=== PATIENT | male | born 1985 | race Two or more races ===

== ENCOUNTER 2025-02-05 21:40 | Inpatient (IN) | payer MEDICAID ==
[~2025-02-05] VITALS: Ht 182.9 cm; Wt 99.8 kg
[2025-02-05] MEDS ORDERED: ATOR40TA PO (22:05)
[2025-02-05 22:15] LABS: BASOPHILS # (AUTO) 0.1 K/UL (0.0-0.2); BASOPHILS % (AUTO) 0.3 % (0.0-2.0); EOSINOPHILS % (AUTO) 0.1 % (0.0-7.0); HEMOGLOBIN 15.8 g/dL (12.5-16.3); MEAN CORPUSCULAR HGB CONC 34 g/dL (32.5-36.3); MEAN CORPUSCULAR VOLUME 84.5 fL (73.0-96.2); MONOCYTES # (AUTO) 0.9 K/uL (0.1-1.30); MONOCYTES % (AUTO) 5.2 % (0.0-11.0); NEUTROPHILS # (AUTO) 14.9 K/uL (1.8-8.9); NEUTROPHILS % (AUTO) 83.4 % (38.5-71.5); PLATELET COUNT (AUTO) 290 K/uL (152-348); RED BLOOD CELL COUNT(AUTO) 5.44 MIL/uL (4.06-5.63); RED CELL DISTRIBUTION WIDTH 13.7 % (12.1-16.2); WHITE BLOOD COUNT (AUTO) 17.9 K/uL (3.6-10.2)
[2025-02-05 22:20] LABS: DIFFERENTIAL COMMENT 1
[2025-02-05 22:23] LABS: CALCIUM 9.9 mg/dL (8.5-10.1); CREATININE 1.2 mg/dL (0.6-1.3); POTASSIUM 3.4 mmol/L (3.5-5.1)
[2025-02-05] MEDS ORDERED: SWABABLE VALVE TRANSFER SET EA MC ONE (22:25)
[2025-02-05] MEDS ORDERED: IOHEXOL 300MG/ML 100 ML INFUS..BTL ONE (22:25)
[2025-02-05] MEDS ORDERED: IV NORMAL SALINE 250 ML IV ONE (22:25)
[2025-02-05] MEDS ORDERED: HYDROMORPHONE 1 MG/1 ML DISP.SYRIN ONE (22:28)
[2025-02-05] MEDS ORDERED: ONDANSETRON 4 MG/2 ML VIAL ONE (22:28)
[2025-02-05 22:29] LABS: ALBUMIN 4.3 g/dL (3.4-5.0); BILIRUBIN,DIRECT 0.3 mg/dL (0.0-0.2); BILIRUBIN,TOTAL 1.7 mg/dL (0.2-1.0); TOTAL PROTEIN, SERUM 8.3 g/dL (6.4-8.2)
[2025-02-05] MEDS: IV NORMAL SALINE 1000 ML BAG IV ONE (22:32)
[2025-02-05] MEDS: ONDANSETRON 4 MG/2 ML VIAL IV ONE (22:32)
[2025-02-05] MEDS: HYDROMORPHONE 1 MG/1 ML DISP.SYRIN IV ONE (22:32)
[2025-02-05] MEDS ORDERED: PIPERACILLIN/TAZOBACTAM/D5W 50 ML IV ONE (22:52)
[2025-02-05] MEDS: PIPERACILLIN SODIUM/TAZOBACTAM 3.375 G in IV DEXTROSE 5% 50 ML IV ONE (22:56)
[2025-02-06] MEDS ORDERED: ACETAMINOPHEN 325 MG TABLET PO PRN (01:30)
[2025-02-06] MEDS: IV D5 1/2 NS 1000 ML 1,000 ML IV PRN (01:47)
[2025-02-06] MEDS: POTASSIUM CHLORIDE 50 ML IV SCH (02:01)
[2025-02-06] MEDS: MORPHINE SULFATE 4 MG/1 ML DISP.SYRIN IV PRN ×2 (03:21→20:22)
[2025-02-06] MEDS: ONDANSETRON 4 MG/2 ML VIAL IV PRN (03:27)
[2025-02-06] MEDS: MORPHINE SULFATE 2 MG/1 ML DISP.SYRIN IM PRN (05:57)
[2025-02-06] MEDS ORDERED: PIPERACILLIN SODIUM/TAZOBACTAM 3.375 G in IV DEXTROSE 5% 50 ML IV SCH (06:00)
[2025-02-06 07:23] LABS: *BILIRUBIN,URIN NEGATIVE (NEGATIVE); *BLOOD, URINE NEGATIVE (NEGATIVE); *CLARITY,URINE CLEAR (CLEAR); *COLOR,URINE YELLOW (YELLOW); *KETONES,URINE NEGATIVE (NEGATIVE); *PROTEIN,URINE NEGATIVE (NEGATIVE); *UROBILINOGEN,URINE 0.2 E.U./dl (NORMAL); LEUKOCYTE ESTERASE ,URINE NEGATIVE (NEGATIVE); NITRITE, URINE NEGATIVE (NEGATIVE); PH,URINE 6.5 (5.0-8.0); UGLUCOSE NEGATIVE (NEGATIVE)
[2025-02-06] MEDS: PIPERACILLIN SODIUM/TAZOBACTAM 3.375 G in IV DEXTROSE 5% 100 ML IV SCH (08:00)
[2025-02-06] MEDS: PANTOPRAZOLE SODIUM 40 MG VIAL IV SCH (10:01)
[2025-02-06] MEDS ORDERED: DIATR MEGLU/DIATRIZOATE SODIUM 120 ML BOTTLE ONE (10:12)
[2025-02-06 11:43] VITALS: BP 140/115; TEMP 97.8; O2SAT 96
[2025-02-06 15:35] VITALS: BP 114/67; TEMP 99.7; O2SAT 97
[2025-02-06] MEDS ORDERED: ERGO500040 PO (16:41)
[2025-02-06 19:45] VITALS: BP 116/58; TEMP 99.1; O2SAT 95
[2025-02-06 19:50] VITALS: BP 116/58; TEMP 99.1; O2SAT 95
[2025-02-06 20:18] LABS: LACTIC ACID 2.5 mmol/L (0.4-2.0)
[2025-02-06] MEDS: POTASSIUM CHLORIDE 20 MEQ in IV LACTATED RINGERS SOLUTION 1,000 ML IV SCH (21:15)
[2025-02-06] MEDS: IV NS 1000 ML 1,000 ML IV ONE (22:47)
[2025-02-06 22:50] LABS: BASOPHILS % (AUTO) 0.3 % (0.0-2.0); DIFFERENTIAL COMMENT 1; EOSINOPHILS % (AUTO) 0.1 % (0.0-7.0); HEMATOCRIT 46.4 % (36.7-47.1); HEMOGLOBIN 15.8 g/dL (12.5-16.3); LYMPHOCYTES % (AUTO) 18.5 % (20.5-51.5); MEAN CORPUSCULAR HEMOGLOBIN 28.9 uug (23.8-33.4); MEAN CORPUSCULAR HGB CONC 34 g/dL (32.5-36.3); MEAN CORPUSCULAR VOLUME 84.5 fL (73.0-96.2); MONOCYTES # (AUTO) 0.9 K/uL (0.1-1.30); MONOCYTES % (AUTO) 16.2 % (0.0-11.0); NEUTROPHILS # (AUTO) 3.6 K/uL (1.8-8.9); NEUTROPHILS % (AUTO) 64.9 % (38.5-71.5); PLATELET COUNT (AUTO) 262 K/uL (152-348); RED BLOOD CELL COUNT(AUTO) 5.48 MIL/uL (4.06-5.63); RED CELL DISTRIBUTION WIDTH 13.8 % (12.1-16.2); WHITE BLOOD COUNT (AUTO) 5.6 K/uL (3.6-10.2)
[2025-02-06 22:51] LABS: NEUTROPHILS % (MANUAL) 0 % (42-75)
[2025-02-06 22:55] LABS: CALCIUM 9.5 mg/dL (8.5-10.1); CREATININE 1.1 mg/dL (0.6-1.3); POTASSIUM 3.2 mmol/L (3.5-5.1)
[2025-02-06 22:58] LABS: MAGNESIUM 2.1 mg/dL (1.8-2.4); PHOSPHOROUS 3.9 mg/dL (2.5-4.9)
[2025-02-06] MEDS: IV LACTATED RINGERS SOLUTION 1,000 ML IV ONE (23:54)
[2025-02-07 05:59] VITALS: BP 113/73; TEMP 99.1; O2SAT 95
[2025-02-07 07:04] LABS: CALCIUM 9.1 mg/dL (8.5-10.1); CREATININE 1.1 mg/dL (0.6-1.3); PHOSPHOROUS 2.5 mg/dL (2.5-4.9)
[2025-02-07 07:21] LABS: BASOPHILS % (AUTO) 0.2 % (0.0-2.0); EOSINOPHILS % (AUTO) 0.8 % (0.0-7.0); HEMATOCRIT 41.6 % (36.7-47.1); HEMOGLOBIN 14.6 g/dL (12.5-16.3); LYMPHOCYTES % (AUTO) 19.2 % (20.5-51.5); MEAN CORPUSCULAR HEMOGLOBIN 29.5 uug (23.8-33.4); MEAN CORPUSCULAR HGB CONC 35 g/dL (32.5-36.3); MEAN CORPUSCULAR VOLUME 84.1 fL (73.0-96.2); MONOCYTES # (AUTO) 0.9 K/uL (0.1-1.30); MONOCYTES % (AUTO) 16.6 % (0.0-11.0); NEUTROPHILS # (AUTO) 3.4 K/uL (1.8-8.9); NEUTROPHILS % (AUTO) 63.2 % (38.5-71.5); PLATELET COUNT (AUTO) 220 K/uL (152-348); RED BLOOD CELL COUNT(AUTO) 4.94 MIL/uL (4.06-5.63); RED CELL DISTRIBUTION WIDTH 13.8 % (12.1-16.2); WHITE BLOOD COUNT (AUTO) 5.5 K/uL (3.6-10.2)
[2025-02-07 10:18] VITALS: BP 106/66; TEMP 98.6; O2SAT 95
[2025-02-07] MEDS ORDERED: POTASSIUM CHLORIDE 50 ML IV SCH (11:00)
[2025-02-07 12:18] LABS: NEUTROPHILS % (MANUAL) 63 % (42-75)
[2025-02-07 12:19] LABS: EOSINOPHILS % (MANUAL) 1 % (0-8); LYMPHOCYTES % (MANUAL) 19 % (20-40); MONOCYTES % (MANUAL) 17 % (2-10); PLATELET ESTIMATE ADEQUATE
[2025-02-07] MEDS ORDERED: DIATR MEGLU/DIATRIZOATE SODIUM 30 ML BOTTLE ONE (12:32)
[2025-02-07 14:10] VITALS: BP 109/61; TEMP 98.5; O2SAT 95
[2025-02-07] MEDS ORDERED: SWABABLE VALVE TRANSFER SET EA MC ONE (16:30)
[2025-02-07] MEDS ORDERED: IV NORMAL SALINE 250 ML IV ONE (16:30)
[2025-02-07] MEDS ORDERED: IOHEXOL 300MG/ML 100 ML INFUS..BTL ONE (16:30)
[2025-02-07 19:00] VITALS: BP 110/68; TEMP 98.5; O2SAT 97
[2025-02-07] MEDS: POTASSIUM CHLORIDE 20 MEQ in IV LACTATED RINGERS SOLUTION 1,000 ML IV PRN (21:22)
[2025-02-08 06:29] VITALS: BP 107/65; TEMP 98.4; O2SAT 97
[2025-02-08] MEDS ORDERED: MORPHINE SULFATE 4 MG/1 ML DISP.SYRIN IV PRN (07:00)
[2025-02-08] MEDS ORDERED: MORPHINE SULFATE 2 MG/1 ML DISP.SYRIN IV PRN (10:00)
[2025-02-08 11:20] LABS: CREATININE 0.8 mg/dL (0.6-1.3); POTASSIUM 3.6 mmol/L (3.5-5.1)
[2025-02-08 11:43] VITALS: BP 114/71; TEMP 97.8; O2SAT 98
[2025-02-08 16:02] VITALS: BP 123/75; TEMP 98.3; O2SAT 98
[2025-02-09 07:00] LABS: BASOPHILS # (AUTO) 0.1 K/UL (0.0-0.2); BASOPHILS % (AUTO) 0.8 % (0.0-2.0); EOSINOPHILS # (AUTO) 0.4 K/uL (0.0-0.7); EOSINOPHILS % (AUTO) 4.8 % (0.0-7.0); HEMATOCRIT 37.1 % (36.7-47.1); HEMOGLOBIN 12.9 g/dL (12.5-16.3); LYMPHOCYTES # (AUTO) 2.4 K/uL (0.8-4.8); LYMPHOCYTES % (AUTO) 28.7 % (20.5-51.5); MEAN CORPUSCULAR HEMOGLOBIN 29.4 uug (23.8-33.4); MEAN CORPUSCULAR HGB CONC 35 g/dL (32.5-36.3); MEAN CORPUSCULAR VOLUME 84.8 fL (73.0-96.2); MONOCYTES # (AUTO) 0.7 K/uL (0.1-1.30); MONOCYTES % (AUTO) 8.6 % (0.0-11.0); NEUTROPHILS # (AUTO) 4.8 K/uL (1.8-8.9); NEUTROPHILS % (AUTO) 57.1 % (38.5-71.5); PLATELET COUNT (AUTO) 214 K/uL (152-348); RED BLOOD CELL COUNT(AUTO) 4.37 MIL/uL (4.06-5.63); RED CELL DISTRIBUTION WIDTH 13.4 % (12.1-16.2); WHITE BLOOD COUNT (AUTO) 8.4 K/uL (3.6-10.2)
[2025-02-09 07:02] LABS: DIFFERENTIAL COMMENT 1
[2025-02-09 07:07] LABS: CALCIUM 8.8 mg/dL (8.5-10.1); CREATININE 0.8 mg/dL (0.6-1.3); MAGNESIUM 2.2 mg/dL (1.8-2.4); PHOSPHOROUS 2.7 mg/dL (2.5-4.9); POTASSIUM 3.7 mmol/L (3.5-5.1)
[2025-02-09 11:30] VITALS: BP 101/68; TEMP 98.9; O2SAT 100
[2025-02-09 15:20] VITALS: BP 112/56; TEMP 98.9; O2SAT 96
== END 2025-02-09 15:25 | disposition home or self-care (01) | DRG 247 ==
LOC: ER 21:45 → MEDSURG3 02-06 00:37
PROVIDERS: ADMIT Nurse Practitioner Family; ATTEND Nurse Practitioner Acute Care
PROC: 0D9670Z Drainage of Stomach with Drainage Device, Via Natural or Artificial Opening (ICD-10-PCS; principal; 2025-02-06)
DX: K56.600 Partial intestinal obstruction, unspecified as to cause (principal); R17 Unspecified jaundice; E80.4 Gilbert syndrome; E87.6 Hypokalemia; F17.210 Nicotine dependence, cigarettes, uncomplicated; E78.5 Hyperlipidemia, unspecified; Z79.899 Other long term (current) drug therapy; D72.829 Elevated white blood cell count, unspecified; K52.9 Noninfective gastroenteritis and colitis, unspecified
CPT/HCPCS: 36415; 71045; 74018; 74250; 83605; 83690; 83735; 84100; 85025; G0378; J1171; J2270; J2405; J2470; J2543; J3480; J7040; J7120; Q9963; Q9967